=== PATIENT | male | born 2000 | race American Indian/Alaskan Native ===

== ENCOUNTER 2019-12-09 17:56 | Emergency (ER) | payer SELFPAY ==
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
[2019-12-09 18:03] VITALS: BP 134/76
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
[2019-12-09] MEDS ORDERED: IBUPROFEN 600 MG TAB PO ONE (20:52)
[2019-12-09] MEDS ORDERED: ACETAMINOPHEN 500 MG TAB PO ONE (20:52)
== END 2019-12-09 21:35 | disposition home or self-care (01) ==
LOC: ED 17:56
DX: S86.912A Strain of unspecified muscle(s) and tendon(s) at lower leg level, left leg, initial encounter (principal); M62.830 Muscle spasm of back; J45.909 Unspecified asthma, uncomplicated; Z79.899 Other long term (current) drug therapy; Z88.0 Allergy status to penicillin; V49.49XA Driver injured in collision with other motor vehicles in traffic accident, initial encounter; Y92.410 Unspecified street and highway as the place of occurrence of the external cause; Y93.89 Activity, other specified; Y99.8 Other external cause status
CPT/HCPCS: 72100

== ENCOUNTER 2020-10-23 08:47 | Emergency (ER) | payer SELFPAY ==
--- NOTE | 2020-10-23 09:21 | Event Note ---
ED Screening Note ED Screening Note: co ruq pain and diarrhea for 3 days pain radiates from ruq to midline denies urinary symptoms but pain does sound colicky in nature no tachycardia no fever or chills no hx of same This initial assessment/diagnostic orders/clinical plan/treatment(s) is/are subject to change based on patients health status, clinical progression and re- assessment by fellow clinical providers in the ED. Further treatment and workup at subsequent clinical providers discretion. Patient/guardian urged not to elope from the ED as their condition may be serious if not clinically assessed and managed. Initial orders include: labs/ eval g bladder/pancreatitis ro k stones
[2020-10-23 10:15] LABS: Bilirubin,Urine NEG (Negative); Blood,Urine NEG (Negative); Color,Urine Straw (Yellow); Mucus,Urine FEW /HPF; Protein,Urine <15 mg/dL mg/dL (Negative); Urobilinogen,Urine < 2.0 mg/dL (<2.0); WBC,Urine < 1.0 /HPF (0.0-6.0)
[2020-10-23 10:25] LABS: Basophils % (Auto) 0.5 % (0.0-1.8); Eosinophils # (Auto) 0.1 K/mm3 (0.0-0.4); Eosinophils % (Auto) 2.3 % (0.0-4.3); Hemoglobin 15.6 gm/dl (11.8-15.2); Lymphocytes # (Auto) 1.3 K/mm3 (1.2-5.4); Lymphocytes % (Auto) 34.1 % (13.4-35.0); Mean Corpuscular HGB Conc 35 % (32-34); Mean Corpuscular Volume 85 fl (84-94); Monocytes # (Auto) 0.5 K/mm3 (0.0-0.8); Monocytes % (Auto) 13.3 % (0.0-7.3); Platelet Count 210 K/mm3 (140-440); Red Cell Distribution Width 13.2 % (13.2-15.2)
[2020-10-23 10:49] VITALS: BP 100/63
[2020-10-23 11:06] LABS: Alanine Aminotransferase 13 units/L (7-56); Albumin 4.6 g/dL (3.9-5); BUN/Creatinine Ratio 11; Blood Urea Nitrogen 9 mg/dL (9-20); Hemolysis Index 6
[2020-10-23 11:13] LABS: Bilirubin,Direct < 0.2 mg/dL (0-0.2)
--- NOTE | 2020-10-23 11:17 | Emergency Department Report ---
ED Abdominal Pain HPI - General Chief Complaint: Nausea/Vomiting/Diarrhea Stated Complaint: STOMACH PAIN/DIARRHEA PUI?: No Time Seen by Provider: 10/23/20 09:19 Source: patient Mode of arrival: Ambulatory Limitations: No Limitations - History of Present Illness Initial Comments: 20 YO [employer] COMES TO ER WITH SEVERAL DAY HISTORY OF DIARRHEA. ONE BM SO FAR TODAY. 3 EPISODES YESTERDAY. NO N/V. NO FEVER OR CHILLS. WORSE P HE DID PT (FOR [employer] [facility]). NO CP OR SOB. DIARRHEA IS WATERY WITHOUT BLOOD. ENDORSES RUQ PAIN THAT RAD TO MIDLINE; CRAMPY IN NATURE NO DIFFICULTY URINATING NO ONE ELSE AROUND HIM IS ILL NO KNOWN FOOD INTAKE THAT COULD BE CULPRIT HAS TAKEN NOTHING DINKEY SKINNER IN ER FOR DIARRHEA NO PRIOR SIMILAR ILLNESS PT AMBULATORY AND NON ILL APPEARING IN TRIAGE; COMES TO ER IN POV ABD EXAM BENIGN MD Complaint: abdominal pain -: Gradual, days(s) Location: RUQ Radiation: other Severity: mild Quality: other Improves With: nothing Worsens With: nothing Associated Symptoms: denies other symptoms, diarrhea. denies: nausea, vomiting, fever, chills, constipation, dysuria, hematemesis, hematochezia, melena, hematuria, anorexia, syncope - Related Data Previous Rx's Medication Instructions Recorded Last Taken Type Naproxen 500 mg PO Q12H PRN #30 tablet 12/09/19 Unknown Rx tiZANidine [Zanaflex 4mg TAB] 4 mg PO Q8H PRN #15 tablet 12/09/19 Unknown Rx Allergies Allergy/AdvReac Type Severity Reaction Status Date / Time Penicillins Allergy Anaphylaxis Verified 12/09/19 17:59 ED Review of Systems ROS: Stated complaint: STOMACH PAIN/DIARRHEA Other details as noted in HPI Comment: All other systems reviewed and negative ED Past Medical Hx - Past Medical History Previous Medical History?: Yes Hx Asthma: Yes - Surgical History Past Surgical History?: No - Family History Family history: no significant - Social History Smoking Status: Never Smoker Substance Use Type: None - Medications Home Medications: Home Medications Medication Instructions Recorded Confirmed Last Taken Type Naproxen 500 mg PO Q12H PRN #30 tablet 12/09/19 Unknown Rx tiZANidine [Zanaflex 4mg TAB] 4 mg PO Q8H PRN #15 tablet 12/09/19 Unknown Rx ED Physical Exam - General Limitations: No Limitations General appearance: alert, in no apparent distress - Head Head exam: Present: atraumatic, normocephalic - Eye Eye exam: Present: normal appearance - ENT ENT exam: Present: mucous membranes moist - Neck Neck exam: Present: normal inspection - Respiratory Respiratory exam: Present: normal lung sounds bilaterally. Absent: respiratory distress - Cardiovascular Cardiovascular Exam: Present: regular rate, normal rhythm. Absent: systolic murmur, diastolic murmur, rubs, gallop - GI/Abdominal GI/Abdominal exam: Present: soft, normal bowel sounds - Rectal Rectal exam: Present: deferred - Extremities Exam Extremities exam: Present: normal inspection - Back Exam Back exam: Present: normal inspection - Neurological Exam Neurological exam: Present: alert, oriented X3 - Psychiatric Psychiatric exam: Present: normal affect, normal mood - Skin Skin exam: Present: warm, dry, intact, normal color. Absent: rash ED Course Vital Signs 10/23/20 10/23/20 10/23/20 09:04 09:07 10:44 Temperature 99.0 F 97.9 F Pulse Rate 86 73 Respiratory 16 18 Rate Blood Pressure 118/69 100/63 O2 Sat by Pulse 99 98 99 Oximetry - Reevaluation(s) Reevaluation #1: 10/23/20 11:34 RE-EVAL PT SITING IN [facility]- PLAYING ON PHONE NO DIARRHEA OR N/V SINCE HE GOT HERE VS STABLE ABD EXAM REMAINS UNREMARKABLE ED Medical Decision Making - Lab Data Result diagrams: 10/23/20 09:47 10/23/20 09:47 - Medical Decision Making Lab Results 10/23/20 10/23/20 10/23/20 Range/Units 09:47 09:47 10:09 WBC 3.9 L (4.5-11.0) K/mm3 RBC 5.30 H (3.65-5.03) M/mm3 Hgb 15.6 H (11.8-15.2) gm/dl Hct 45.0 (35.5-45.6) % MCV 85 (84-94) fl MCH 29 (28-32) pg MCHC 35 H (32-34) % RDW 13.2 (13.2-15.2) % Plt Count 210 (140-440) K/mm3 Lymph % (Auto) 34.1 (13.4-35.0) % [place] % (Auto) 13.3 H (0.0-7.3) % Eos % (Auto) 2.3 (0.0-4.3) % Baso % (Auto) 0.5 (0.0-1.8) % Lymph # (Auto) 1.3 (1.2-5.4) K/mm3 [place] # (Auto) 0.5 (0.0-0.8) K/mm3 Eos # (Auto) 0.1 (0.0-0.4) K/mm3 Baso # (Auto) 0.0 (0.0-0.1) K/mm3 Seg Neutrophils % 49.8 (40.0-70.0) % Seg Neutrophils # 1.9 (1.8-7.7) K/mm3 Sodium 142 (137-145) mmol/L Potassium 4.7 (3.6-5.0) mmol/L Chloride 102.3 (98-107) mmol/L Carbon Dioxide 27 (22-30) mmol/L Anion Gap 17 mmol/L BUN 9 (9-20) mg/dL Creatinine 0.8 (0.8-1.3) mg/dL Estimated GFR > 60 ml/min BUN/Creatinine Ratio 11 % Glucose 99 (75-100) mg/dL Calcium 10.0 (8.4-10.2) mg/dL Total Bilirubin 0.30 (0.1-1.2) mg/dL Direct Bilirubin < 0.2 (0-0.2) mg/dL Indirect Bilirubin 0.1 mg/dL AST 17 (5-40) units/L ALT 13 (7-56) units/L Alkaline Phosphatase 82 (35-129) units/L Total Protein 8.2 (6.3-8.2) g/dL Albumin 4.6 (3.9-5) g/dL Albumin/Globulin Ratio 1.3 % Lipase 14 (13-60) units/L Urine Color Straw (Yellow) Urine Turbidity Clear (Clear) Urine pH 7.0 (5.0-7.0) Ur Specific [place] 1.005 (1.003-1.030) Urine Protein <15 mg/dl (Negative) mg/dL Urine Glucose (UA) Neg (Negative) mg/dL Urine Ketones Neg (Negative) mg/dL Urine Blood Neg (Negative) Urine Nitrite Neg (Negative) Urine Bilirubin Neg (Negative) Urine Urobilinogen < 2.0 (<2.0) mg/dL Ur Leukocyte Esterase Neg (Negative) Urine WBC (Auto) < 1.0 (0.0-6.0) /HPF Urine RBC (Auto) 1.0 (0.0-6.0) /HPF Urine Mucus Few /HPF Vital Signs 10/23/20 10/23/20 10/23/20 09:04 09:07 10:44 Temperature 99.0 F 97.9 F Pulse Rate 86 73 Respiratory 16 18 Rate Blood Pressure 118/69 100/63 O2 Sat by Pulse 99 98 99 Oximetry LABS NOTED UA NOTED VSS NO FEVER EXAM BENIGN TAKING PO NO FURTHER DIARRHEA 1 BM TODAY TOTAL PER PT DC HOME WITH DC PLAN OF CARE- PT VERBALIZES UNDERSTANDING OF PLAN OF CARE INCLU DING DIET, ACTIVITY AND FOLLOW UP. PCP REFERRAL HAS BEEN PROVIDED - Differential Diagnosis DIARRHEA- food borne illness, viral illness Critical care attestation.: If time is entered above; I have spent that time in minutes in the direct care of this critically ill patient, excluding procedure time. ED Disposition Clinical Impression: Diarrhea Disposition: 01 HOME / SELF CARE / HOMELESS Is pt being admited?: No Does the pt Need Aspirin: No Condition: Stable Instructions: Diarrhea, Adult Additional Instructions: BLAND DIET BANANA RICE APPLESAUCE AND TOAST STAY WELL HYDRATED WITH WATER AVOID SPICY FOOD AND ALCOHOL FOLLOW UP WITH PCP ON TUESDAY IF NOT FEELING BETTER REFERRAL BELOW Referrals: SHANON MAYORGA MD [Staff Physician] - 3-5 Days Forms: Work/School Release Form(ED) Time of Disposition: 11:20
== END 2020-10-23 11:51 | disposition home or self-care (01) ==
LOC: ED 08:47
DX: R19.7 Diarrhea, unspecified (principal); J45.909 Unspecified asthma, uncomplicated; Z88.0 Allergy status to penicillin
CPT/HCPCS: 36415; 80048; 80076; 81001; 83690; 85025; 99283